=== PATIENT | male | born 1955 | race Caucasian/White ===

== ENCOUNTER 2017-09-13 09:28 | Emergency (ER) | payer MEDICARE, OTHER ==
[~2017-09-13] VITALS: Ht 165.1 cm; Wt 67.5 kg
[~2017-09-13 09:28] MED LIST: ASPI81 CHEW; ATEN1TAB74 PO; BC FPOW; GLUCTAB PO; HYDR-2768 PO; NIAC50TA PO; ONDA1TAB16 PO; SIMV20TA PO; TRAM50 PO
[2017-09-13 09:29] VITALS: BP 214/102; PULSE 109; RESP 20; TEMP 97.8; O2SAT 97
[2017-09-13 09:40] VITALS: BP_SYST 206; BP_SYST 208; BP_DIAS 102; BP_DIAS 145; PULSE 110; RESP 18; O2SAT 98
[2017-09-13] MEDS ORDERED: METF500T PO ×2 (09:53→12:30)
[2017-09-13] MEDS ORDERED: METO50TA PO ×2 (09:53→10:34)
[2017-09-13] MEDS ORDERED: LISI10TA3 PO ×2 (09:53→10:34)
[2017-09-13] MEDS ORDERED: HYDR25TA5 PO ×2 (09:53→10:34)
[2017-09-13] MEDS ORDERED: AMLO10TA2 PO ×2 (09:53→10:34)
[2017-09-13] MEDS ORDERED: ATOR80TA45 PO (09:53)
[2017-09-13 10:24] VITALS: RESP 18; O2SAT 98
[2017-09-13] MEDS ORDERED: hydrALAZINE HCL 20 MG/ML VIAL IV PUSH ONE (10:30)
[2017-09-13] MEDS ORDERED: CORTISPORIN OTIC SUS EACH EAR (10:34)
--- NOTE | 2017-09-13 10:34 | PD ---
HPI Chief Complaint: Medication Refill Request Time Seen by Provider: 09:52 Travel History International Travel<30 days: No Contact w/Intl Traveler<30days: No Traveled to known affect area: No History of Present Illness HPI 62-year-old male complains of headache, wheezing, left ear drainage. Patient states that he had persistent drainage from the left ear for the past few months. Patient states that he has history of COPD started wheezing recently. Patient denies any fever chills chest pain or shortness of breath. Patient Is a smoker. Patient states that he ran out of his inhaler recently. Patient has history hypertension and ran out of his blood pressure medication for the past 17 days. Patient was on lisinopril, metoprolol, amlodipine and HCTZ. Patient also has history of type 2 diabetes on metformin. Patient states that his blood sugar has been in good control. Patient states that the headache mild aching headache diffuse over the head started several days ago. Patient denies any visual change. Patient denies any neck pain. PFSH Past Medical History Blood Disorders: No Cardiovascular Problems: Yes High Cholesterol: Yes Cerebrovascular Accident: Yes (TIA 2010) Diabetes: Yes Patient Takes Glucophage: Yes Hypertension: Yes Respiratory: Yes (COPD) Influenza Vaccination: Yes ?: Not Past Surgical History Appendectomy: Yes Cholecystectomy: Yes Eye Surgery: Yes (CATERACTS) Tonsillectomy: Yes Social History Alcohol Use: No Tobacco Use: Yes (1 PPD) Substance Use: No Allergies-Medications (Allergen,Severity, Reaction): Coded Allergies: penicillin G (Unverified Allergy, Severe, 05/28/17) Uncoded Allergies: NKA (Allergy, Unknown, 06/22/03) PENICILLIN (Allergy, Unknown, 06/22/03) Reported Meds & Prescriptions Reported Meds & Active Scripts Active Ventolin Hfa 18 GM Inh (Albuterol Sulfate) 90 Mcg/Act Aer 2 Puff INH Q4-6H PRN [Cortisporin Otic [place]] 4 Drop EACH EAR TID Hydrochlorothiazide 25 Mg Tab 25 Mg PO DAILY Amlodipine (Amlodipine Besylate) 10 Mg Tab 10 Mg PO DAILY Metoprolol Tartrate 50 Mg Tab 50 Mg PO BID Lisinopril 10 Mg Tab 10 Mg PO DAILY Reported Metformin (Metformin HCl) 500 Mg Tab 500 Mg PO BIDPC Atorvastatin (Atorvastatin Calcium) 80 Mg Tab 80 Mg PO HS Review of Systems General / Constitutional: No: Fever Eyes: No: Visual changes HENT: Positive: Headaches, Ear Discharge Cardiovascular: No: Chest Pain or Discomfort Respiratory: Positive: Wheezing, No: Shortness of Breath Gastrointestinal: No: Abdominal Pain Genitourinary: No: Dysuria Musculoskeletal: No: Pain Skin: No Rash Neurologic: No: Weakness Psychiatric: No: Depression Endocrine: No: Polydipsia Hematologic/Lymphatic: No: Easy Bruising Physical Exam Narrative GENERAL: Well-nourished, well-developed patient. SKIN: Focused skin assessment warm/dry. HEAD: Normocephalic. EYES: No scleral icterus. No injection or drainage. Pupils 2 mm equal reactive. Left ear canal irritated with mild redness and swelling. TM normal. NECK: Supple, trachea midline. No JVD or lymphadenopathy. No meningismus CARDIOVASCULAR: Regular rate and rhythm without murmurs, gallops, or rubs. RESPIRATORY: Breath sounds equal bilaterally. No accessory muscle use. Patient has mild to moderate expiratory wheezes bilaterally. No rhonchi. GASTROINTESTINAL: Abdomen soft, non-tender, nondistended. MUSCULOSKELETAL: No cyanosis, or edema. BACK: Nontender without obvious deformity. No CVA tenderness. Neurologic exam normal. Data Data Last Documented VS Vital Signs Date Time Temp Pulse Resp B/P (MAP) Pulse Ox O2 Delivery O2 Flow Rate FiO2 09/13/17 11:00 105 20 179/96 (123) 98 Room Air 09/13/17 09:29 97.8 Orders Orders Electrocardiogram (09/13/17 10:22) Complete Blood Count With Diff (09/13/17 10:22) Basic Metabolic Panel (Bmp) (09/13/17 10:22) Iv Access Insert/Monitor (09/13/17 10:22) Ecg Monitoring (09/13/17 10:22) Oximetry (09/13/17 10:22) Chest, Single Ap (09/13/17 10:22) Albuterol-Ipratropium Neb (Duoneb Neb) (09/13/17 10:30) Hydralazine Inj (Apresoline Inj) (09/13/17 10:30) Labs Laboratory Tests Test 09/13/17 10:27 White Blood Count 6.2 TH/MM3 Red Blood Count 4.17 MIL/MM3 Hemoglobin 13.8 GM/DL Hematocrit 39.6 % Mean Corpuscular Volume 95.0 FL Mean Corpuscular Hemoglobin 33.1 PG Mean Corpuscular Hemoglobin Concent 34.8 % Red Cell Distribution Width 13.4 % Platelet Count 137 TH/MM3 Mean Platelet Volume 10.3 FL Neutrophils (%) (Auto) 73.1 % Lymphocytes (%) (Auto) 17.0 % Monocytes (%) (Auto) 7.5 % Eosinophils (%) (Auto) 1.9 % Basophils (%) (Auto) 0.5 % Neutrophils # (Auto) 4.6 TH/MM3 Lymphocytes # (Auto) 1.1 TH/MM3 Monocytes # (Auto) 0.5 TH/MM3 Eosinophils # (Auto) 0.1 TH/MM3 Basophils # (Auto) 0.0 TH/MM3 CBC Comment DIFF FINAL Differential Comment Blood Urea Nitrogen 17 MG/DL Creatinine 1.06 MG/DL Random Glucose 201 MG/DL Calcium Level 8.2 MG/DL Sodium Level 140 MEQ/L Potassium Level 3.5 MEQ/L Chloride Level 105 MEQ/L Carbon Dioxide Level 32.0 MEQ/L Anion Gap 3 MEQ/L Estimat Glomerular Filtration Rate 71 ML/MIN MDM Medical Decision Making Medical Screen Exam Complete: Yes Emergency Medical Condition: Yes Interpretation(s) Last Impressions Chest X-Ray 09/13/17 1022 Signed Impressions: Service Date/Time: Wednesday, September 13, 2017 10:49 - CONCLUSION: No acute disease. Trung Salcido Jr., MD CBC within normal limit. BMP with glucose at 201. Calcium 8.2. Differential Diagnosis Differential diagnosis including uncontrolled hypertension, hypertensive urgency , hypertensive crisis, acute exacerbation COPD, bronchitis, pneumonia, PE, pneumothorax, otitis externa. Narrative Course 62-year-old male with left knee drainage, headache, wheezing, elevated blood pressure. History of hypertension and COPD. Patient ran out of medication recently. Albumin with Atrovent unit dose treatment 2. Hydralazine 10 mg IV. Diagnosis Primary Impression: Uncontrolled hypertension Additional Impressions: COPD with acute exacerbation Otitis externa Qualified Codes: H60.392 - Other infective otitis externa, left ear Patient Instructions: General Instructions Additional Instructions: Take medication as directed. Use inhalers directed. Follow-up with personal physician, ENT. Return if worse. Check blood sugar daily. Check blood pressure daily. Med/Other Pt SpecificInfo: Prescription(s) given Scripts Metformin (Metformin) 500 Mg Tab 500 MG PO BIDPC for Blood Sugar Management, #60 TAB 0 Refills Prov: Johnnie Lane MD 09/13/17 Albuterol 18 GM Inh (Ventolin Hfa 18 GM Inh) 90 Mcg/Act Aer 2 PUFF INH Q4-6H Y for SHORTNESS OF BREATH, #1 INHALER [address]: Johnnie Lane MD 09/13/17 [Cortisporin Otic [place]] No Conflict Check 4 DROP EACH EAR TID, #1 Prov: Johnnie Lane MD 09/13/17 Hydrochlorothiazide (Hydrochlorothiazide) 25 Mg Tab 25 MG PO DAILY, #30 TAB 0 Refills Prov: Johnnie Lane MD 09/13/17 Amlodipine (Amlodipine) 10 Mg Tab 10 MG PO DAILY for Blood Pressure Management, #30 TAB 0 Refills Prov: Johnnie Lane MD 09/13/17 Metoprolol Tartrate (Metoprolol Tartrate) 50 Mg Tab 50 MG PO BID, #60 TAB 0 Refills Prov: Johnnie Lane MD 09/13/17 Lisinopril (Lisinopril) 10 Mg Tab 10 MG PO DAILY, #30 TAB 0 Refills Prov: Johnnie Lane MD 09/13/17 Disposition: 01 DISCHARGE HOME Condition: Stable Johnnie Lane MD Sep 13, 2017 10:34
[2017-09-13] MEDS ORDERED: VENTAER INH (10:35)
[2017-09-13 10:36] VITALS: BP 191/109; PULSE 105; PULSE 74
[2017-09-13] MEDS: RESP: ALBUTEROL 2.5 MG/IPRATROPIUM 0.5 MG NEB (SCH) INH ×2 (10:45→11:01)
[2017-09-13 10:50] VITALS: BP 171/100; PULSE 109; PULSE 88
[2017-09-13 11:00] VITALS: BP 179/96; PULSE 105; RESP 20; O2SAT 98
--- NOTE | 2017-09-13 11:06 | RADRPT ---
EXAM DATE/TIME: 09/13/2017 10:49 [facility] COMPARISON: No previous studies available for comparison. INDICATIONS : Short of breath, very high blood pressure MEDICAL HISTORY : Cerebrovascular disease. Diabetes mellitus type II. Hypertension. SURGICAL HISTORY : Cholecystectomy. Appendectomy. Tonsillectomy. ENCOUNTER: Initial ACUITY: 1 day PAIN SCORE: 0/10 LOCATION: Bilateral chest FINDINGS: A single view of the chest demonstrates the lungs to be symmetrically aerated without evidence of mas s, infiltrate or effusion. The cardiomediastinal contours are unremarkable. Osseous structures are intact. CONCLUSION: No acute disease. Trung Salcido Jr., MD on September 13, 2017 at 11:04 Board Certified Radiologist. This report was verified electronically.
[2017-09-13 11:11] LABS: AUTOMATED NEUTROPHIL # 4.6 TH/MM3 (1.8-7.7); BASOPHIL % 0.5 % (0.0-2.0); EOSINOPHIL # 0.1 TH/MM3 (0-0.4); EOSINOPHIL % 1.9 % (0.0-4.0); HEMATOCRIT 39.6 % (39.0-51.0); HEMO FLAGS DIFF FINAL; LYMPHOCYTE # 1.1 TH/MM3 (1.0-4.8); MEAN CORPUSCULAR HEMOGLOBIN 33.1 PG (27.0-34.0); MEAN CORPUSCULAR HGB CONC 34.8 % (32.0-36.0); MONO % 7.5 % (0.0-8.0); NEUT % 73.1 % (16.0-70.0); PLATELET COUNT 137 TH/MM3 (150-450); RED BLOOD COUNT 4.17 MIL/MM3 (4.50-5.90); RED CELL DISTRIBUTION WIDTH 13.4 % (11.6-17.2); WHITE BLOOD COUNT 6.2 TH/MM3 (4.0-11.0)
[2017-09-13 11:24] LABS: POTASSIUM 3.5 MEQ/L (3.5-5.1)
--- NOTE | 2017-09-13 16:32 | EKG ---
Date Performed: 09/13/2017 Time Performed: 09:45:37 PTAGE: 62 years EKG: Sinus rhythm NONSPECIFIC T-WAVE ABNORMALITY Since previous tracing, no significant change noted BORDERLINE ECG PREVIOUS TRACING : 10/24/15 17.48.02 DOCTOR: Nuria Solano Interpretating Date/Time 09/13/2017 16:31:48
== END 2017-09-13 13:37 | disposition home or self-care (01) ==
LOC: NEPC 09:28
DX: J44.1 Chronic obstructive pulmonary disease with (acute) exacerbation (principal); I10 Essential (primary) hypertension; H60.92 Unspecified otitis externa, left ear; R51 Headache; E11.9 Type 2 diabetes mellitus without complications; E78.00 Pure hypercholesterolemia, unspecified; J44.9 Chronic obstructive pulmonary disease, unspecified; F17.200 Nicotine dependence, unspecified, uncomplicated; Z86.73 Personal history of transient ischemic attack (TIA), and cerebral infarction without residual deficits
CPT/HCPCS: 71010; 80048; 85025; 93005; 94640; 94664; 96374; 99285; J0360

== ENCOUNTER 2017-11-05 06:16 | Inpatient (IN) | payer OTHER, MEDICARE ==
[~2017-11-05] VITALS: Ht 167.6 cm; Wt 70.0 kg
[2017-11-05] VITALS (18 sets, daily range): BP systolic 75–110; BP diastolic 43–58; PULSE 88–113; RESP 18–26; TEMP 97.8–100.4; O2SAT 94–98
[~2017-11-05 06:16] MED LIST changes: +AMLO10TA2 PO; -ASPI81 CHEW; -ATEN1TAB74 PO; +ATOR80TA45 PO; -BC FPOW; +CORTISPORIN OTIC SUS EACH EAR; -GLUCTAB PO; -HYDR-2768 PO; +HYDR25TA5 PO; +LISI10TA3 PO; +METF500T PO; +METO50TA PO; -NIAC50TA PO; -ONDA1TAB16 PO; -SIMV20TA PO; -TRAM50 PO; +VENTAER INH
--- NOTE | 2017-11-05 06:37 | PD ---
HPI Chief Complaint: Cold / Flu Symptoms Time Seen by Provider: 06:31 Travel History International Travel<30 days: No Contact w/Intl Traveler<30days: No Traveled to known affect area: No History of Present Illness HPI The patient is 62 year old male who presents to the [facility] emergency department with a history of chest pain, cough, congestion, and fever began 3 days ago. The patient reports that the pain in his chest is in the center of his chest when he takes a deep breath. He has had night sweats. He has had a fever with a tmax of 102. 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 He has a history of COPD and is using his rescue inhaler more frequently. He continues to smoke 5 cigs/ day. He denies any history of heart disease, PE, or DVT. His last stress test was done 2 years ago. The patient reports that he's had nausea and vomiting twice, diarrhea 2. He denies having any blood in his stool or mucus in his stool. Incidentally on ROS , he has had right calf pain for the last 2 days. Otherwise on review of systems neck pain, abdominal pain, urinary symptoms, or neurologic symptoms. PCP : Dr. Ruiz. 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 Blood Disorders: No Cardiovascular Problems: Yes High Cholesterol: Yes COPD: Yes Cerebrovascular Accident: Yes (TIA 2010) Diabetes: Yes Patient Takes Glucophage: Yes (11/05/17 04:30) Diminished Hearing: Yes (DEAF IN RIGHT EAR) Hypertension: Yes Respiratory: Yes (COPD) Past Surgical History Narrative Surgical The patient's past surgical history is significant for cholecystectomy, appendectomy, right knee sx, right hand sx, cataract sx, and tonsillectomy. Appendectomy: Yes Cholecystectomy: Yes Eye Surgery: Yes (CATARACTS) Tonsillectomy: Yes Social History Alcohol Use: No Tobacco Use: Yes (5 CIGARETTES/DAY) Substance Use: No Allergies-Medications (Allergen,Severity, Reaction): Coded Allergies: penicillin G (Unverified Allergy, Severe, 11/05/17) Uncoded Allergies: NKA (Allergy, Unknown, 9/9/03) PENICILLIN (Allergy, Unknown, 06/22/03) Reported Meds & Prescriptions Reported Meds & Active Scripts Active Metformin (Metformin HCl) 500 Mg Tab 500 Mg PO BIDPC Ventolin Hfa 18 GM Inh (Albuterol Sulfate) 90 Mcg/Act Aer 2 Puff INH Q4-6H PRN [Cortisporin Otic [place]] 4 Drop EACH EAR TID Hydrochlorothiazide 25 Mg Tab 25 Mg PO DAILY Amlodipine (Amlodipine Besylate) 10 Mg Tab 10 Mg PO DAILY Metoprolol Tartrate 50 Mg Tab 50 Mg PO BID Lisinopril 10 Mg Tab 10 Mg PO DAILY Reported Atorvastatin (Atorvastatin Calcium) 80 Mg Tab 80 Mg PO HS Review of Systems Except as stated in HPI: all other systems reviewed are Neg General / Constitutional: Positive: Fever Eyes: No: Visual changes HENT: Positive: Rhinorrhea, Congestion, No: Headaches Cardiovascular: No: Chest Pain or Discomfort Respiratory: Positive: Cough (brown sputum), No: Shortness of Breath Gastrointestinal: Positive: Nausea, Vomiting (x2), Diarrhea (x2), No: Abdominal Pain Genitourinary: Positive: Frequency, No: Dysuria Musculoskeletal: No: Pain Skin: No Rash Neurologic: Positive: Weakness (generalized), No: Focal Abnormalities, Change in Mentation, Slurred Speech, Sensory Disturbance Psychiatric: No: Depression Endocrine: No: Polydipsia Hematologic/Lymphatic: No: Easy Bruising Physical Exam Narrative General: The patient is a well-developed well-nourished male, short of breath on arrival , tachypneic, slightly tachycardic. The patient was brought in by ambulance services, IV access was obtained prior to arrival. The patient was given Solu- Medrol 125 mg IV, albuterol nebulizer treatments 2. Head and Neck exam: Head is normocephalic atraumatic. Eyes: EOMI, pupils are equal round and reactive to light. Nose: Midline septum with pink mucous membranes Mouth: Dentition unremarkable. Moist mucus membranes. Posterior oropharynx is not erythematous. No tonsillar hypertrophy. Uvula midline. Airway patent. Neck: No palpable lymphadenopathy. No nuchal rigidity. No thyromegaly. Cardiovascular: Sinus tachycardia in the low 100s without murmurs, gallops, or rubs. No pulse deficit to the extremities on simultaneous auscultation and palpation of his radial artery. Lungs: Expiratory wheezes are audible throughout bilateral lung carr. No crackles or rhonchi. The patient has accessory muscle use noted. The patient has tripoding noted. Abdomen: Soft, without tenderness to palpation in all 4 quadrants of the abdomen. No guarding, rebound, or rigidity. Normal bowel sounds are audible. No tenderness on palpation of McBurney's point. Negative Pickadr's sign. Extremities: No clubbing, cyanosis, or edema. 2+ pulses in all 4 extremities. The patient has a left-sided calf tenderness on palpation. Positive Homans sign on the left. No palpable cords. Back: No spinous process tenderness to palpation. No costovertebral angle tenderness to palpation. Neurologic Exam: Grossly nonfocal. Skin Exam: No rash noted. Intact skin that is warm and dry. Data Data Last Documented VS Vital Signs Date Time Temp Pulse Resp B/P (MAP) Pulse Ox O2 Delivery O2 Flow Rate FiO2 11/05/17 06:45 96 Nasal Cannula 2.00 11/05/17 06:24 102 20 11/05/17 06:20 99.5 101/58 (72) Orders Orders Electrocardiogram (11/05/17 06:31) Complete Blood Count With Diff (11/05/17 06:31) Comprehensive Metabolic Panel (11/05/17 06:31) Creatine Kinase (Cpk) (11/05/17 06:31) Ckmb (Isoenzyme) Profile (11/05/17 06:31) Troponin I (11/05/17 06:31) Prothrombin Time / Inr (Pt) (11/05/17 06:31) Act Partial Throm Time (Ptt) (11/05/17 06:31) Blood Culture (11/05/17 06:31) C-Reactive Protein (Crp) (11/05/17 06:31) Lipase (11/05/17 06:31) Urinalysis - C+S If Indicated (11/05/17 06:31) Magnesium (Mg) (11/05/17 06:31) Influenzae A/B Antigen (11/05/17 06:31) Chest, Single Ap (11/05/17 06:31) Iv Access Insert/Monitor (11/05/17 06:31) Ecg Monitoring (11/05/17 06:31) Oximetry (11/05/17 06:31) Lactic Acid Sepsis Protocol (11/05/17 06:31) Oxygen Administration (11/05/17 06:50) Sodium Chloride 0.9% Flush (Ns Flush) (11/05/17 07:00) Methylprednisolone So Succ Inj (Solumedr (11/05/17 07:00) Albuterol-Ipratropium Neb (Duoneb Neb) (11/05/17 07:00) Sodium Chlor 0.9% 1000 Ml Inj (Ns 1000 M (11/05/17 07:00) Ondansetron Inj (Zofran Inj) (11/05/17 07:00) Us Leg Venous Doppler (11/05/17 06:51) Labs Laboratory Tests Test 11/05/17 06:30 [facility] Medical Decision Making Medical Screen Exam Complete: Yes Emergency Medical Condition: Yes Medical Record Reviewed: Yes Differential Diagnosis Influenza, versus COPD exacerbation, versus pneumonia Narrative Course During the course of the patients emergency department visit, the patients history, examination, and differential diagnosis were reviewed with the patient. The patient was placed on a director cardiac with oximetry and frequent blood pressure monitoring. The patient had IV access obtained and blood work sent for analysis. The patient will have a left leg ultrasound done to rule out DVT. A chest x-ray was ordered. The patient was initially provided DuoNeb 3. The patient was given Solu- Medrol prior to arrival. The patients laboratory studies were reviewed and remarkable for a white count of 8.8, hemoglobin 13.7, platelets 122 with 74.3 neutrophils, monocytes 12.6, CMP is pending, PT PTT are pending. The patient's case will be checked out to the oncoming emergency physician to disposition the patient based on the conclusion of his workup. Alisha Blanca MD Nov 05, 2017 06:37
[2017-11-05] MEDS: RESP: ALBUTEROL 2.5 MG/IPRATROPIUM 0.5 MG NEB (SCH) INH ×5 (06:56→09:14)
[2017-11-05 06:58] LABS: AUTOMATED NEUTROPHIL # 6.5 TH/MM3 (1.8-7.7); BASOPHIL % 0.5 % (0.0-2.0); HEMATOCRIT 39.5 % (39.0-51.0); HEMOGLOBIN 13.7 GM/DL (13.0-17.0); LYMPH % 12.6 % (9.0-44.0); LYMPHOCYTE # 1.1 TH/MM3 (1.0-4.8); MEAN CELL VOLUME 93.2 FL (80.0-100.0); MEAN CORPUSCULAR HEMOGLOBIN 32.3 PG (27.0-34.0); MEAN CORPUSCULAR HGB CONC 34.7 % (32.0-36.0); MEAN PLATELET VOLUME 10.3 FL (7.0-11.0); MONO % 12.6 % (0.0-8.0); MONOCYTE # 1.1 TH/MM3 (0-0.9); NEUT % 74.3 % (16.0-70.0); PLATELET COUNT 122 TH/MM3 (150-450); RED BLOOD COUNT 4.23 MIL/MM3 (4.50-5.90); RED CELL DISTRIBUTION WIDTH 13.7 % (11.6-17.2); WHITE BLOOD COUNT 8.8 TH/MM3 (4.0-11.0)
[2017-11-05] MEDS ORDERED: methylPREDNISolone SOD SUCC 125 MG/2 ML VIAL IV PUSH ONE (07:00)
[2017-11-05] MEDS ORDERED: SODIUM CHLORIDE 0.9% FLUSH 10 ML FLUSH IVF PRN (07:00)
[2017-11-05] MEDS ORDERED: ONDANSETRON HCL 4 MG/2 ML VIAL IV ONE (07:00)
[2017-11-05] MEDS ORDERED: SODIUM CHLOR 0.9% 1000 ML INJ 1,000 ML IV ONE ×2 (07:00→10:15)
[2017-11-05 07:09] LABS: INTERNATIONAL NORMALIZED RATIO 1.1 RATIO; PROTHROMBIN TIME - PATIENT 11.4 SEC (9.8-11.6)
[2017-11-05 07:12] LABS: ALBUMIN 3.5 GM/DL (3.4-5.0); ALT (GPT) 22 U/L (12-78); AST (GOT) 19 U/L (15-37); BICARBONATE 27.3 MEQ/L (21.0-32.0); BLOOD UREA NITROGEN 21 MG/DL (7-18); CALCIUM 7.8 MG/DL (8.5-10.1); CHLORIDE 101 MEQ/L (98-107); GLOMERULAR FILTRATION RATE 51 ML/MIN (>89); GLUCOSE,RANDOM 156 MG/DL (74-106); LIPASE 136 U/L (73-393); MAGNESIUM 2.1 MG/DL (1.5-2.5); SODIUM (NA) 136 MEQ/L (136-145)
[2017-11-05 07:15] LABS: ALKALINE PHOSPHATASE 89 U/L (45-117); TOTAL BILIRUBIN ADULT 0.5 MG/DL (0.2-1.0); TOTAL PROTEIN 7.5 GM/DL (6.4-8.2); TROPONIN I LESS THAN 0.02 NG/ML (0.02-0.05)
--- NOTE | 2017-11-05 07:15 | RADRPT ---
EXAM DATE/TIME: 11/05/2017 06:39 [facility] COMPARISON: CHEST SINGLE AP, September 13, 2017, 10:49. INDICATIONS : Short of breath, mid-sternal chest pains, cough, fever, nausea x1 week. MEDICAL HISTORY : Stroke. SURGICAL HISTORY : None. ENCOUNTER: Initial ACUITY: 1 week PAIN SCORE: 3/10 LOCATION: Left chest FINDINGS: The lungs are clear without infiltrate, nodule, or mass. There is no appreciable pleural effusion fo r technique. Heart and mediastinum are unremarkable. CONCLUSION: No acute cardiopulmonary disease. Pj Gallego MD on November 05, 2017 at 7:13 Board Certified Radiologist. This report was verified electronically.
[2017-11-05] MEDS ORDERED: POTASSIUM CHLORIDE 25 MEQ EFFERVESCENT TAB PO ONE ×2 (07:30→10:15)
--- NOTE | 2017-11-05 07:54 | RADRPT ---
EXAM DATE/TIME: 11/05/2017 07:30 [facility] COMPARISON: No previous studies available for comparison. INDICATIONS : Left leg thrombosis. MEDICAL HISTORY : Hypercholesterolemia. Hypertension. Chronic obstructive pulmonary disease. TIA. SURGICAL HISTORY : Tonsillectomy. Cholecystectomy. Right kene surgery. ENCOUNTER: Initial ACUITY: 1 day PAIN SCORE: 6/10 LOCATION: Left leg. TECHNIQUE: Venous ultrasound of the leg was performed from the inguinal ligament to the proximal calf. Real-evangelista e, color Doppler and spectral tracing, compression and augmentation techniques were used. FINDINGS: There is normal compressibility of the deep venous system from the inguinal region to the proximal ca lf. No echogenic clot is seen in the lumen of the common femoral, femoral, popliteal, and posterior tibial veins. There is a normal response of the venous system to proximal and distal augmentation an d respiration. CONCLUSION: 1. No sonographic evidence for left lower extremity DVT. Eder Cifuentes MD on November 05, 2017 at 7:51 Board Certified Radiologist. This report was verified electronically.
[2017-11-05 09:00] LABS: BILIRUBIN, URINE NEG (NEG); BLOOD, URINE NEG (NEG); GLUCOSE,URINE NEG (NEG); HYALINE CAST, URINE 12 /lpf (RARE); KETONE, URINE NEG (NEG); MUCUS URINE FEW /lpf (OCC); NITRITE,URINE NEG (NEG); PH, URINE 5.5 (5.0-8.5); SQUAMOUS EPITHELIAL CELL URINE <1 /hpf (0-5); URINE COLOR YELLOW (YELLW/STRAW); URINE LEUKOCYTE ESTERASE TRACE (NEG)
[2017-11-05] MEDS ORDERED: MAGNESIUM SULFATE 1 GM PREMIX 100 ML IV ONE (09:00)
--- NOTE | 2017-11-05 10:09 | PD ---
Physical Exam Date Seen by Provider: Nov 05, 2017 Time Seen by Provider: 07:00 Narrative Patient signed out to me at [address] Grant, please see her note for further details. Patient came in with shortness of breath, fevers, an workup was not initiated as well as nebulizers in treatment for COPD. Laboratory Tests Test 11/05/17 06:30 11/05/17 08:35 Red Blood Count 4.23 MIL/MM3 (4.50-5.90) Platelet Count 122 TH/MM3 (150-450) Neutrophils (%) (Auto) 74.3 % (16.0-70.0) Monocytes (%) (Auto) 12.6 % (0.0-8.0) Monocytes # (Auto) 1.1 TH/MM3 (0-0.9) Activated Partial Thromboplast Time 32.9 SEC (24.3-30.1) Blood Urea Nitrogen 21 MG/DL (7-18) Creatinine 1.40 MG/DL (0.60-1.30) Random Glucose 156 MG/DL (74-106) Calcium Level 7.8 MG/DL (8.5-10.1) Potassium Level 3.0 MEQ/L (3.5-5.1) Estimat Glomerular Filtration Rate 51 ML/MIN (>89) Troponin I LESS THAN 0.02 NG/ML C-Reactive Protein 14.80 MG/DL (0.00-0.30) Urine Leukocyte Esterase TRACE (NEG) Urine Mucus FEW /lpf (OCC) Last 24 hours Impressions Lower Extremity Ultrasound 11/05/17 0651 Signed Impressions: Service Date/Time: Sunday, November 05, 2017 07:30 - CONCLUSION: 1. No sonographic evidence for left lower extremity DVT. Eder Cifuentes MD Chest X-Ray 11/05/17 0631 Signed Impressions: Service Date/Time: Sunday, November 05, 2017 06:39 - CONCLUSION: No acute cardiopulmonary disease. Pj Gallego MD Chest x-ray did not show any signs of acute pulmonary processes. D-dimers negative. Obliquus fairly unremarkable except for hypokalemia. Potassium p.o. as given in the ER. He was not given further duo nebs in the ER with only mild symptom relief. After multiple nebulizers were given, an multiple re- evaluations in the ER, he does not appear to be improving significantly. He has still tachypnea, has notable accessory muscle use, an my plan would be to admit him for further treatment. He has also influenza negative. Case with discussed with Dr. Silverman for observation admission in further treatment. Magnesium with also added to regimen. Data Data Last Documented VS Vital Signs Date Time Temp Pulse Resp B/P (MAP) Pulse Ox O2 Delivery O2 Flow Rate FiO2 11/05/17 09:06 97 2.00 11/05/17 09:00 108 23 108/53 (71) Nasal Cannula 11/05/17 06:20 99.5 Orders Orders Electrocardiogram (11/05/17 06:31) Complete Blood Count With Diff (11/05/17 06:31) Comprehensive Metabolic Panel (11/05/17 06:31) Creatine Kinase (Cpk) (11/05/17 06:31) Ckmb (Isoenzyme) Profile (11/05/17 06:31) Troponin I (11/05/17 06:31) Prothrombin Time / Inr (Pt) (11/05/17 06:31) Act Partial Throm Time (Ptt) (11/05/17 06:31) Blood Culture (11/05/17 06:31) C-Reactive Protein (Crp) (11/05/17 06:31) Lipase (11/05/17 06:31) Urinalysis - C+S If Indicated (11/05/17 06:31) Magnesium (Mg) (11/05/17 06:31) Influenzae A/B Antigen (11/05/17 06:31) Chest, Single Ap (11/05/17 06:31) Iv Access Insert/Monitor (11/05/17 06:31) Ecg Monitoring (11/05/17 06:31) Oximetry (11/05/17 06:31) Lactic Acid Sepsis Protocol (11/05/17 06:31) Oxygen Administration (11/05/17 06:50) Sodium Chloride 0.9% Flush (Ns Flush) (11/05/17 07:00) Methylprednisolone So Succ Inj (Solumedr (11/05/17 07:00) Albuterol-Ipratropium Neb (Duoneb Neb) (11/05/17 07:00) Sodium Chlor 0.9% 1000 Ml Inj (Ns 1000 M (11/05/17 07:00) Ondansetron Inj (Zofran Inj) (11/05/17 07:00) Us Leg Venous Doppler (11/05/17 06:51) D-Dimer (11/05/17 07:04) CKMB (11/05/17 06:30) CKMB% (11/05/17 06:30) Potassium Chloride Eff (K-Lyte Cl Eff) (11/05/17 07:30) Albuterol-Ipratropium Neb (Duoneb Neb) (11/05/17 08:00) Albuterol-Ipratropium Neb (Duoneb Neb) (11/05/17 09:00) Magnesium Sulfate 1 Gm Premix (Magnesium (11/05/17 09:00) Admit Order (Ed Use Only) (11/05/17 10:05) Ns (Bolus) Inj (11/05/17 10:15) Labs Laboratory Tests Test 11/05/17 06:30 11/05/17 08:35 White Blood Count 8.8 TH/MM3 Red Blood Count 4.23 MIL/MM3 Hemoglobin 13.7 GM/DL Hematocrit 39.5 % Mean Corpuscular Volume 93.2 FL Mean Corpuscular Hemoglobin 32.3 PG Mean Corpuscular Hemoglobin Concent 34.7 % Red Cell Distribution Width 13.7 % Platelet Count 122 TH/MM3 Mean Platelet Volume 10.3 FL Neutrophils (%) (Auto) 74.3 % Lymphocytes (%) (Auto) 12.6 % Monocytes (%) (Auto) 12.6 % Eosinophils (%) (Auto) 0.0 % Basophils (%) (Auto) 0.5 % Neutrophils # (Auto) 6.5 TH/MM3 Lymphocytes # (Auto) 1.1 TH/MM3 Monocytes # (Auto) 1.1 TH/MM3 Eosinophils # (Auto) 0.0 TH/MM3 Basophils # (Auto) 0.0 TH/MM3 CBC Comment DIFF FINAL Differential Comment Prothrombin Time 11.4 SEC Prothromb Time International Ratio 1.1 RATIO Activated Partial Thromboplast Time 32.9 SEC D-Dimer Quantitative (PE/DVT) 0.48 MG/L FEU Blood Urea Nitrogen 21 MG/DL Creatinine 1.40 MG/DL Random Glucose 156 MG/DL Total Protein 7.5 GM/DL Albumin 3.5 GM/DL Calcium Level 7.8 MG/DL Magnesium Level 2.1 MG/DL Alkaline Phosphatase 89 U/L Aspartate Amino Transf (AST/SGOT) 19 U/L Alanine Aminotransferase (ALT/SGPT) 22 U/L Total Bilirubin 0.5 MG/DL Sodium Level 136 MEQ/L Potassium Level 3.0 MEQ/L Chloride Level 101 MEQ/L Carbon Dioxide Level 27.3 MEQ/L Anion Gap 8 MEQ/L Estimat Glomerular Filtration Rate 51 ML/MIN Lactic Acid Level 0.7 mmol/L Total Creatine Kinase 189 U/L Creatine Kinase MB 0.7 NG/ML Troponin I LESS THAN 0.02 NG/ML C-Reactive Protein 14.80 MG/DL Lipase 136 U/L Urine Color YELLOW Urine Turbidity CLEAR Urine pH 5.5 Urine Specific [place] 1.019 Urine Protein TRACE mg/dL Urine Glucose (UA) NEG mg/dL Urine Ketones NEG mg/dL Urine Occult Blood NEG Urine Nitrite NEG Urine Bilirubin NEG Urine Urobilinogen 2.0 MG/DL Urine Leukocyte Esterase TRACE Urine RBC LESS THAN 1 /hpf Urine WBC 2 /hpf Urine Squamous Epithelial Cells <1 /hpf Urine Hyaline Casts 12 /lpf Urine Mucus FEW /lpf Microscopic Urinalysis Comment CULT NOT INDICATED MDM Medical Record Reviewed: Yes Supervised Visit with STEPHEN: No Diagnosis Primary Impression: COPD exacerbation Additional Impression: Hypokalemia Admitting Information Admitting Physician Requests: Admit Garry Schofield MD Nov 05, 2017 10:09
[2017-11-05] MEDS ORDERED: NALOXONE HCL 0.4 MG/ML AMP IV PUSH PRN (10:15)
[2017-11-05] MEDS ORDERED: SODIUM CHLORIDE 0.9% FLUSH 10 ML FLUSH IV FLUSH PRN (10:15)
[2017-11-05] MEDS ORDERED: RESP: IPRATROPIUM 0.5 MG/2.5 ML NEB NEB PRN (10:15)
[2017-11-05] MEDS: methylPREDNISolone SOD SUCC 40 MG/1 ML VIAL IV PUSH SCH ×2 (11:43→17:57)
--- NOTE | 2017-11-05 12:55 | HHI.HP ---
[facility] No Primary Care Physician Admission Diagnosis COPD exacerbation/hypokalemia Diagnoses: Travel History International Travel<30 Days: No Contact w/Intl Traveler <30 Da: No Traveled to Known Affected Are: No History of Present Illness hx from patient, ER provider, nursing staff could not breathe chest was hurting today is his 4th day with sob coughing a lot sputum is brown and yellow fever is 102.8 at home has been all the time for first 2 days when he wakes up, all clothes and pillows drenched no antibiotics outside had diarrhea- 2 days - about 3x a day thinks color of stool is black but he is not sure also c/o left upper and lower quadrant abdominal pain 2 days could not eat or drink just have to put water in his mouth to wet his mouth to prevent dehydration had constant nausea, no vomiting only dry heaves severe headache- mostly at back of the head no urinary symptoms was very weak no dizziness no syncope pt is diabetic Review of Systems Except as stated in HPI: all other systems reviewed are Neg Past Family Social History Past Medical History htn dm denies cad/chf CVA x2 thinks he has Afib- but he is not sure- COPD - not on home oxygen yet, but PCP was prescribing him for that and arranging with insurance Past Surgical History right knee replaced right elbow right hand right shoulder sx appedectomy tonsilectomy coronary angiogram 20yrs ago Allergies: Coded Allergies: penicillin G (Unverified Allergy, Severe, Hives, 11/05/17) Family History mother, and both sisters- heart problem Social History used to smoke 2 pack a day, now half a pack a day [place] no drugs no 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[employer], now drives taxi Physical Exam Vital Signs Vital Signs Date Time Temp Pulse Resp B/P (MAP) Pulse Ox O2 Delivery O2 Flow Rate FiO2 11/05/17 12:05 111 11/05/17 11:41 98.3 109 18 92/52 (65) 95 11/05/17 10:47 11/05/17 10:14 113 20 107/52 (70) 94 Nasal Cannula 2.00 11/05/17 10:12 113 20 110/55 (73) 94 Nasal Cannula 2.00 11/05/17 10:05 108 21 75/43 (54) 94 Nasal Cannula 2.00 11/05/17 10:00 104 20 76/46 (56) 94 Nasal Cannula 2.00 11/05/17 09:06 97 2.00 11/05/17 09:00 108 23 108/53 (71) 96 Nasal Cannula 2.00 11/05/17 08:15 24 Nasal Cannula 2.00 11/05/17 08:14 109 22 102/57 (72) 98 Nasal Cannula 2.00 11/05/17 08:09 110 26 97 Nasal Cannula 2.00 11/05/17 06:45 96 Nasal Cannula 2.00 11/05/17 06:29 96 Nasal Cannula 2.00 11/05/17 06:24 102 20 96 Nasal Cannula 2.00 11/05/17 06:20 99.5 103 20 101/58 (72) 95 Physical Exam GENERAL: This is a well-nourished, well-developed patient, in no apparent distress. SKIN: No rashes, ecchymoses or lesions. Cool and dry. HEAD: Atraumatic. Normocephalic. No temporal or scalp tenderness. EYES: No scleral icterus. No injection or drainage. ENT: Nose without bleeding, purulent drainage or septal hematoma.. Airway patent. NECK: Trachea midline. No JVD. Supple, nontender, no meningeal signs. CARDIOVASCULAR: Regular rate and rhythm without murmurs, gallops, or rubs. RESPIRATORY: Bilateral expiratory wheezing. GASTROINTESTINAL: Abdomen soft, non-tender, nondistendeds. No guarding. MUSCULOSKELETAL: Extremities without clubbing, cyanosis, or edema. . No calf tenderness. NEUROLOGICAL: Awake and alert. Motor and sensory grossly within normal limitsNormal speech. Laboratory Laboratory Tests Test 11/05/17 06:30 11/05/17 08:35 White Blood Count 8.8 Red Blood Count 4.23 Hemoglobin 13.7 Hematocrit 39.5 Mean Corpuscular Volume 93.2 Mean Corpuscular Hemoglobin 32.3 Mean Corpuscular Hemoglobin Concent 34.7 Red Cell Distribution Width 13.7 Platelet Count 122 Mean Platelet Volume 10.3 Neutrophils (%) (Auto) 74.3 Lymphocytes (%) (Auto) 12.6 Monocytes (%) (Auto) 12.6 Eosinophils (%) (Auto) 0.0 Basophils (%) (Auto) 0.5 Neutrophils # (Auto) 6.5 Lymphocytes # (Auto) 1.1 Monocytes # (Auto) 1.1 Eosinophils # (Auto) 0.0 Basophils # (Auto) 0.0 CBC Comment DIFF FINAL Differential Comment Prothrombin Time 11.4 Prothromb Time International Ratio 1.1 Activated Partial Thromboplast Time 32.9 D-Dimer Quantitative (PE/DVT) 0.48 Blood Urea Nitrogen 21 Creatinine 1.40 Random Glucose 156 Total Protein 7.5 Albumin 3.5 Calcium Level 7.8 Magnesium Level 2.1 Alkaline Phosphatase 89 Aspartate Amino Transf (AST/SGOT) 19 Alanine Aminotransferase (ALT/SGPT) 22 Total Bilirubin 0.5 Sodium Level 136 Potassium Level 3.0 Chloride Level 101 Carbon Dioxide Level 27.3 Anion Gap 8 Estimat Glomerular Filtration Rate 51 Lactic Acid Level 0.7 Total Creatine Kinase 189 Creatine Kinase MB 0.7 Troponin I LESS THAN 0.02 C-Reactive Protein 14.80 B-Type Natriuretic Peptide 8 Lipase 136 Urine Color YELLOW Urine Turbidity CLEAR Urine pH 5.5 Urine Specific [employer] 1.019 Urine Protein TRACE Urine Glucose (UA) NEG Urine Ketones NEG Urine Occult Blood NEG Urine Nitrite NEG Urine Bilirubin NEG Urine Urobilinogen 2.0 Urine Leukocyte Esterase TRACE Urine RBC LESS THAN 1 Urine WBC 2 Urine Squamous Epithelial Cells <1 Urine Hyaline Casts 12 Urine Mucus FEW Microscopic Urinalysis Comment CULT NOT INDICATED Date/Time Source Procedure Growth Status 11/05/17 06:35 Blood Peripheral Aerobic Blood Culture Pending Received 11/05/17 06:35 Blood Peripheral Anaerobic Blood Culture Pending Received 11/05/17 06:30 Nasal Aspirate Influenza Types A,B Antigen (YINA) - Final NEGATIVE FOR FLU A AND B ANTIGEN.... Complete Result Diagram: 11/05/1762911/05/17629 Imaging Last 48 hours Impressions Lower Extremity Ultrasound 11/05/17650 Signed Impressions: Service Date/Time: Sunday, November 05, 2017 07:30 - CONCLUSION: 1. No sonographic evidence for left lower extremity DVT. Eder Cifuentes MD Chest X-Ray 11/05/17630 Signed Impressions: Service Date/Time: Sunday, November 05, 2017 06:39 - CONCLUSION: No acute cardiopulmonary disease. Pj Gallego MD Head CT 11/05/17 0000 Signed Impressions: Service Date/Time: Sunday, November 05, 2017 18:57 - CONCLUSION: 1. No acute intracranial abnormalities. Keyur Pinto MD Capalexandrai VTE Risk Assessment Caprini VTE Risk Assessment: Mod/High Risk (score >= 2) Caprini Risk Assessment Model Point Value = 1 Point Value = 2 Point Value = 3 Point Value = 5 Age 41-60 Minor surgery BMI > 25 kg/m2 Swollen legs Varicose veins or History of unexplained or recurrent spontaneous Oral contraceptives or hormone replacement Sepsis (< 1 month) Serious lung disease, including pneumonia (< 1 month) Abnormal pulmonary function Acute myocardial infarction Congestive heart failure (< 1 month) History of inflammatory bowel disease Medical patient at bed rest Age 61-74 Arthroscopic surgery Major open surgery (> 45 min) Laparoscopic surgery (> 45 min) Malignancy Confined to bed (> 72 hours) Immobilizing plaster cast Central venous access Age >= 75 History of VTE Family history of VTE Factor V Leiden Prothrombin [id number] Lupus anticoagulant Anticardiolipin antibodies Elevated serum homocysteine Heparin-induced thrombocytopenia Other congenital or acquired thrombophilia Stroke (< 1 month) Elective arthroplasty Hip, pelvis, or leg fracture Acute spinal cord injury (< 1 month) Prophylaxis Regimen Total Risk Factor Score Risk Level Prophylaxis Regimen 0-1 Low Early ambulation 2 Moderate Order ONE of the following: *Sequential Compression Device (SCD) *Heparin 5000 units SQ BID 3-4 Higher Order ONE of the following medications: *Heparin 5000 units SQ TID *Enoxaparin/Lovenox 40 mg SQ daily (WT < 150 kg, CrCl > 30 mL/min) *Enoxaparin/Lovenox 30 mg SQ daily (WT < 150 kg, CrCl > 10-29 mL/min) *Enoxaparin/Lovenox 30 mg SQ BID (WT < 150 kg, CrCl > 30 mL/min) AND/OR *Sequential Compression Device (SCD) 5 or more Highest Order ONE of the following medications: *Heparin 5000 units SQ TID (Preferred with Epidurals) *Enoxaparin/Lovenox 40 mg SQ daily (WT < 150 kg, CrCl > 30 mL/min) *Enoxaparin/Lovenox 30 mg SQ daily (WT < 150 kg, CrCl > 10-29 mL/min) *Enoxaparin/Lovenox 30 mg SQ BID (WT < 150 kg, CrCl > 30 mL/min) AND *Sequential Compression Device (SCD) Assessment and Plan Assessment and Plan Impression: A COPD exacerbation Possible underlying pneumonia Severe headaches. No photophobia. No neck rigidity. Clinically not suspecting meningitis. Nausea/vomiting. Likely from underlying infection/pneumonia. htn dm denies cad/chf CVA x2 thinks he has Afib- but he is not sure- COPD - not on home oxygen yet, but PCP was prescribing him for that and arranging with insurance Plan: Solu-Medrol 40 mg IV every 6 hours. nebulizers scheduled and when necessary. PT evaluation. Home oxygen walk test Levofloxacin 750 mg IV every 24 hours. Check BNP. We'll monitor fingersticks and cover with sliding scale coverage. For now, as patient was complaining of nausea and vomiting, will start patient on small D5 IV fluids. If blood sugars are elevated, will discontinue. Hold metformin. Would obtain CT brain to rule out any intracranial hemorrhage/mass to explain his headaches. However on review of medical records, patient had similar headaches previously in last admission as well. Resume home meds. DVT prophylaxis with Lovenox. GI prophylaxis with ranitidine. Bladder scan to rule out urinary retention as patient seems to have some suprapubic distention. Discussed Condition With patient, ER provider, nursing staff Hina Silverman MD Nov 05, 2017 12:55
[2017-11-05] MEDS ORDERED: D5-1/2 NS + KCL 20 MEQ INJ 1,000 ML IV SCH (13:00)
[2017-11-05] MEDS ORDERED: GLUCAGON 1 MG/ML VIAL OTHER PRN (13:00)
[2017-11-05] MEDS ORDERED: DEXTROSE 50% IN WATER 50 ML VIAL(D50) IV PUSH PRN (13:00)
[2017-11-05] MEDS ORDERED: PILL SPLITTER OTHER PRN (13:00)
[2017-11-05] MEDS: LEVOFLOXACIN 750 MG PREMIX INJ 150 ML IV SCH (13:36)
[2017-11-05] MEDS ORDERED: OXYGENDME NAS.CANULA (15:36)
[2017-11-05] MEDS: RESP: IPRATROPIUM 0.5 MG/2.5 ML NEB NEB SCH ×2 (16:09→20:46)
[2017-11-05] MEDS: INSULIN ASPART SUPPLEMENTAL SCALE SQ SCH ×2 (17:00→20:48)
--- NOTE | 2017-11-05 17:24 | EKG ---
Date Performed: 11/05/2017 Time Performed: 06:25:11 PTAGE: 62 years EKG: SINUS TACHYCARDIA POSSIBLE LEFT ATRIAL ENLARGEMENT NONSPECIFIC T-WAVE ABNORMALITY ABNORMAL RHYTHM ECG PREVIOUS TRACING : 09/13/2017 09.45 DOCTOR: Layla Goldstein Interpretating Date/Time 11/05/2017 17:20:53
[2017-11-05] MEDS ORDERED: INSULIN HUMAN REGULAR 1,000 UNITS/10 ML VIAL IV PUSH ONE (17:45)
[2017-11-05] MEDS: ACETAMINOPHEN 325 MG TAB PO PRN (18:00)
--- NOTE | 2017-11-05 19:23 | RADRPT ---
EXAM DATE/TIME: 11/05/2017 18:57 [facility] COMPARISON: No previous studies available for comparison. INDICATIONS : Headaches RADIATION DOSE: 38.59 CTDIvol (mGy) MEDICAL HISTORY : Cerebrovascular disease. Hypertension. Chronic obstructive pulmonary disease.Diabetes SURGICAL HISTORY : ENCOUNTER: Initial ACUITY: 1 yr PAIN SCALE: 6/10 LOCATION: cranial TECHNIQUE: Multiple contiguous axial images were obtained of the head. Using automated exposure control and adj ustment of the mA and/or kV according to patient size, radiation dose was kept as low as reasonably a chievable to obtain optimal diagnostic quality images. DICOM format image data is available electro nically for review and comparison. FINDINGS: CEREBRUM: The ventricles are normal for age. No evidence of midline shift, mass lesion, hemorrhage or acute in farction. No extra-axial fluid collections are seen. POSTERIOR FOSSA: The cerebellum and brainstem are intact. The 4th ventricle is midline. The cerebellopontine angle i s unremarkable. EXTRACRANIAL: The visualized portion of the orbits is intact. SKULL: The calvaria is intact. No evidence of skull fracture. CONCLUSION: 1. No acute intracranial abnormalities. Keyur Pinto MD on November 05, 2017 at 19:19 Board Certified Radiologist. This report was verified electronically.
[2017-11-05] MEDS: SODIUM CHLORIDE 0.9% FLUSH 10 ML FLUSH IV FLUSH SCH (20:48)
[2017-11-05] MEDS: FAMOTIDINE 20 MG TAB PO SCH (20:48)
[2017-11-06] VITALS (8 sets, daily range): BP systolic 99–128; BP diastolic 54–64; PULSE 81–115; RESP 18–20; TEMP 97.5–98.2; O2SAT 94–98
[2017-11-06] MEDS: RESP: IPRATROPIUM 0.5 MG/2.5 ML NEB NEB SCH ×4 (03:18→19:29)
[2017-11-06] MEDS: methylPREDNISolone SOD SUCC 40 MG/1 ML VIAL IV PUSH SCH ×3 (05:54→12:11)
[2017-11-06] MEDS: ENOXAPARIN SODIUM 40 MG/0.4 ML SYRINGE SQ SCH (08:39)
[2017-11-06] MEDS: ACETAMINOPHEN 325 MG TAB PO PRN ×3 (08:39→17:25)
[2017-11-06] MEDS: FAMOTIDINE 20 MG TAB PO SCH ×2 (08:39→20:44)
[2017-11-06] MEDS: SODIUM CHLORIDE 0.9% FLUSH 10 ML FLUSH IV FLUSH SCH ×2 (09:00→20:34)
[2017-11-06 09:15] LABS: AUTOMATED NEUTROPHIL # 8.6 TH/MM3 (1.8-7.7); BASOPHIL % 0.1 % (0.0-2.0); HEMATOCRIT 34.9 % (39.0-51.0); HEMOGLOBIN 12.2 GM/DL (13.0-17.0); LYMPH % 3.5 % (9.0-44.0); LYMPHOCYTE # 0.3 TH/MM3 (1.0-4.8); MEAN CELL VOLUME 93.6 FL (80.0-100.0); MEAN CORPUSCULAR HEMOGLOBIN 32.9 PG (27.0-34.0); MEAN CORPUSCULAR HGB CONC 35.1 % (32.0-36.0); MEAN PLATELET VOLUME 10.5 FL (7.0-11.0); MONO % 4.4 % (0.0-8.0); MONOCYTE # 0.4 TH/MM3 (0-0.9); PLATELET COUNT 109 TH/MM3 (150-450); RED BLOOD COUNT 3.73 MIL/MM3 (4.50-5.90); RED CELL DISTRIBUTION WIDTH 13.8 % (11.6-17.2); WHITE BLOOD COUNT 9.4 TH/MM3 (4.0-11.0)
[2017-11-06 09:47] LABS: BICARBONATE 24.6 MEQ/L (21.0-32.0); CALCIUM 7.9 MG/DL (8.5-10.1); CREATININE 1.4 MG/DL (0.60-1.30)
[2017-11-06] MEDS: INSULIN ASPART SUPPLEMENTAL SCALE SQ SCH ×3 (12:24→20:44)
[2017-11-06] MEDS: LEVOFLOXACIN 750 MG PREMIX INJ 150 ML IV SCH (14:08)
[2017-11-06] MEDS ORDERED: RESP: ALBUTEROL 0.63 MG/3 ML NEB (PRN) NEB (14:30)
[2017-11-06] MEDS ORDERED: INSULIN DETEMIR 100 UNITS/ML VIAL SQ ONE (14:30)
--- NOTE | 2017-11-06 14:32 | HHI.PR ---
Subjective Remarks Follow-up COPD exacerbation and diabetes mellitus. Improving shortness of breath but still with wheezing. Uncontrolled diabetes last fingerstick over 400. Patient reports of controlled diabetes at home fingersticks in the 100s. Discussed with nursing staff Objective Vitals Vital Signs Date Time Temp Pulse Resp B/P (MAP) Pulse Ox O2 Delivery O2 Flow Rate FiO2 11/06/17 11:31 22 11/06/17 11:04 98.2 81 18 105/59 (74) 94 11/06/17 09:35 96 Nasal Cannula 2.00 11/06/17 08:20 115 11/06/17 07:10 97.8 81 20 128/64 (85) 96 11/06/17 04:50 98.2 103 18 99/54 (69) 95 11/05/17 21:39 97.8 88 18 104/56 (72) 94 11/05/17 20:51 96 Nasal Cannula 2.00 11/05/17 16:16 91/52 (65) 11/05/17 15:26 106 11/05/17 14:36 98.1 106 18 88/51 (63) 96 I/O 11/05/17 11/05/17 11/05/17 11/06/17 11/06/17 11/06/17 07:00 15:00 23:00 07:00 15:00 23:00 Intake Total 1250 ml Balance 1250 ml Intake IV Total 1250 ml Bladder Scan Volume Amount 149 ml Result Diagram: 11/06/17 0703 11/06/17 0703 Imaging Last Impressions Lower Extremity Ultrasound 11/05/17 0651 Signed Impressions: Service Date/Time: Sunday, November 05, 2017 07:30 - CONCLUSION: 1. No sonographic evidence for left lower extremity DVT. Eder Cifuentes MD Chest X-Ray 11/05/17 0631 Signed Impressions: Service Date/Time: Sunday, November 05, 2017 06:39 - CONCLUSION: No acute cardiopulmonary disease. Pj Gallego MD Head CT 11/05/17 0000 Signed Impressions: Service Date/Time: Sunday, November 05, 2017 18:57 - CONCLUSION: 1. No acute intracranial abnormalities. Keyur Pinto MD Objective Remarks GENERAL: This is a well-nourished, well-developed patient, in no apparent distress. SKIN: No rashes, ecchymoses or lesions. Cool and dry. CARDIOVASCULAR: Regular rate and rhythm without murmurs, gallops, or rubs. RESPIRATORY: Bilateral expiratory wheezing. No retractions GASTROINTESTINAL: Abdomen soft, non-tender, nondistended. No guarding. MUSCULOSKELETAL: Extremities without clubbing, cyanosis, or edema. . No calf tenderness. NEUROLOGICAL: Awake and alert. Motor and sensory grossly within normal limitsNormal speech. Procedures none A/P Problem List: (1) COPD exacerbation ICD Code: J44.1 - Chronic obstructive pulmonary disease with (acute) exacerbation Status: Acute Assessment and Plan COPD exacerbation with acute bronchitis. Still with active wheezing though improving exercise tolerance. Switch to by mouth steroids and Levaquin, continue nebulizations and wean oxygen to keep saturation at least 92%. Blood and sputum culture sputum culture Severe headaches. No photophobia. No neck rigidity. Clinically not suspecting meningitis. Head CT unremarkable Nausea, vomiting and diarrhea. Resolved. Acute kidney injury secondary to dehydration. Nonoliguric. IV fluid 1 L. Avoid nephrotoxins. Hold lisinopril and hydrochlorothiazide Repeat BMP and magnesium in the morning. Uncontrolled diabetes secondary to steroids. Follow-up A1c. Diabetic education. Levemir 12 units 1. Restart metformin. Monitor fingersticks with sliding scale coverage. Chronic medical conditions of htn and CVA x2 DVT prophylaxis with Lovenox. GI prophylaxis with ranitidine. Discharge Planning Patient not ready for discharge still with active wheezing with uncontrolled diabetes fingerstick over 400 Abilio Denton MD Nov 06, 2017 14:32
[2017-11-06] MEDS: SODIUM CHLOR 0.9% 1000 ML INJ 1,000 ML IV SCH (15:48)
[2017-11-06 15:59] LABS: HEMOGLOBIN A1C 7.2 % (4.3-6.0)
[2017-11-06] MEDS: RESP: ALBUTEROL 0.63 MG/3 ML NEB (SCH) NEB ×2 (16:00→19:29)
[2017-11-06] MEDS: metFORMIN HCL 500 MG TAB PO SCH (17:48)
[2017-11-06] MEDS ORDERED: predniSONE 20 MG TAB PO SCH (18:00)
[2017-11-06] MEDS: METOPROLOL TARTRATE 50 MG TAB PO SCH (20:41)
[2017-11-06] MEDS ORDERED: ATORVASTATIN 80 MG TAB PO SCH (21:00)
[2017-11-07 00:26] VITALS: BP 111/56; PULSE 87; RESP 16; TEMP 96.5; O2SAT 94
[2017-11-07] MEDS: ACETAMINOPHEN 325 MG TAB PO PRN (01:50)
[2017-11-07 04:04] VITALS: BP 110/58; PULSE 103; RESP 14; TEMP 95.6; O2SAT 95
[2017-11-07] MEDS: SODIUM CHLOR 0.9% 1000 ML INJ 1,000 ML IV SCH (05:31)
[2017-11-07 08:03] LABS: CALCIUM 7.9 MG/DL (8.5-10.1); CREATININE 1.3 MG/DL (0.60-1.30); MAGNESIUM 2.3 MG/DL (1.5-2.5)
[2017-11-07] MEDS: RESP: ALBUTEROL 0.63 MG/3 ML NEB (SCH) NEB ×2 (08:18→11:21)
[2017-11-07] MEDS: RESP: IPRATROPIUM 0.5 MG/2.5 ML NEB NEB SCH ×2 (08:18→11:21)
[2017-11-07 08:19] VITALS: O2SAT 95
[2017-11-07 08:30] VITALS: BP 123/69; PULSE 89; RESP 20; TEMP 97.8; O2SAT 96
[2017-11-07] MEDS ORDERED: POTASSIUM CHLORIDE 20 MEQ CONTROLLED RELEASE TAB PO ONE (08:45)
[2017-11-07] MEDS: FAMOTIDINE 20 MG TAB PO SCH (09:10)
[2017-11-07] MEDS: METOPROLOL TARTRATE 50 MG TAB PO SCH (09:10)
[2017-11-07] MEDS: metFORMIN HCL 500 MG TAB PO SCH (09:10)
[2017-11-07] MEDS: ENOXAPARIN SODIUM 40 MG/0.4 ML SYRINGE SQ SCH (09:11)
[2017-11-07] MEDS: INSULIN ASPART SUPPLEMENTAL SCALE SQ SCH (09:24)
[2017-11-07] MEDS: SODIUM CHLORIDE 0.9% FLUSH 10 ML FLUSH IV FLUSH SCH (09:24)
--- NOTE | 2017-11-07 11:21 | HHI.PR ---
Subjective Remarks Follow-up COPD exacerbation. Much improved shortness of breath ambulating in the hallway on nasal cannula. Discussed with RN Objective Vitals Vital Signs Date Time Temp Pulse Resp B/P (MAP) Pulse Ox O2 Delivery O2 Flow Rate FiO2 11/07/17 08:30 97.8 89 20 123/69 (87) 96 11/07/17 08:19 95 Nasal Cannula 2.00 11/07/17 04:04 95.6 103 14 110/58 (75) 95 11/07/17 00:26 96.5 87 16 111/56 (74) 94 11/06/17 20:39 97.5 107 115/58 (77) 98 11/06/17 19:30 Nasal Cannula 2.00 11/06/17 19:25 83 11/06/17 18:51 24 11/06/17 15:04 97.9 92 18 117/60 (79) 95 I/O 11/06/17 11/06/17 11/06/17 11/07/17 11/07/17 11/07/17 07:00 15:00 23:00 07:00 15:00 23:00 Intake Total 510 ml 1000 ml Balance 510 ml 1000 ml Intake Oral 360 ml IV Total 150 ml 1000 ml # Voids 4 Result Diagram: 11/06/17 0703 11/07/17 0640 Imaging Last Impressions Lower Extremity Ultrasound 11/05/17 0651 Signed Impressions: Service Date/Time: Sunday, November 05, 2017 07:30 - CONCLUSION: 1. No sonographic evidence for left lower extremity DVT. Eder Cifuentes MD Chest X-Ray 11/05/17 0631 Signed Impressions: Service Date/Time: Sunday, November 05, 2017 06:39 - CONCLUSION: No acute cardiopulmonary disease. Pj Gallego MD Head CT 11/05/17 0000 Signed Impressions: Service Date/Time: Sunday, November 05, 2017 18:57 - CONCLUSION: 1. No acute intracranial abnormalities. Keyur Pinto MD Objective Remarks GENERAL: This is a well-nourished, well-developed patient, in no apparent distress. SKIN: No rashes, ecchymoses or lesions. Cool and dry. CARDIOVASCULAR: Regular rate and rhythm without murmurs, gallops, or rubs. RESPIRATORY: Much improved expiratory wheezing. No retractions GASTROINTESTINAL: Abdomen soft, non-tender, nondistended. No guarding. MUSCULOSKELETAL: Extremities without clubbing, cyanosis, or edema. . No calf tenderness. NEUROLOGICAL: Awake and alert. Motor and sensory grossly within normal limits Normal speech. Procedures none A/P Problem List: (1) COPD exacerbation ICD Code: J44.1 - Chronic obstructive pulmonary disease with (acute) exacerbation Status: Acute Assessment and Plan COPD exacerbation with acute bronchitis. Much improved wheezing and exercise tolerance. Continue mouth steroids, Levaquin, nebulizations and wean oxygen to keep saturation at least 92%. Blood and sputum culture sputum culture negative to date Severe headaches. No photophobia. No neck rigidity. Clinically not suspecting meningitis. Head CT unremarkable. Resolved Nausea, vomiting and diarrhea. Resolved. Acute kidney injury secondary to dehydration. Nonoliguric. IV fluid 1 L. Avoid nephrotoxins. Resolving may restart lisinopril. . Hold HCTZ Uncontrolled diabetes secondary to steroids. A1c 7.2. Diabetic education. Levemir 12 units 1. Continue metformin. Monitor fingersticks with sliding scale coverage. Chronic medical conditions of htn and CVA x2 DVT prophylaxis with Lovenox. GI prophylaxis with ranitidine. Discharge Planning Discharge patient to home Condition on discharge: Improved Regular Diet as tolerated Ad Sharon activity no driving Rx written: Levaquin, prednisone and lisinopril 5 mg daily Follow-up with primary care physician Abilio Denton MD Nov 07, 2017 11:21
[2017-11-07] MEDS ORDERED: LISI-519 PO (11:23)
[2017-11-07] MEDS ORDERED: PRED20 PO (11:23)
[2017-11-07] MEDS ORDERED: LEVA750T9 PO (11:23)
--- NOTE | 2017-11-07 11:24 | HHI.DCPOC ---
Discharge Care Plan Diagnosis: (1) COPD exacerbation Goals to Promote Your Health * To prevent worsening of your condition and complications * To maintain your health at the optimal level Directions to Meet Your Goals Take your medications as prescribed Follow your dietary instruction Follow activity as directed Keep your appointments as scheduled Take your immunizations and boosters as scheduled If your symptoms worsen call your PCP, if no PCP go to Urgent Care Center or Emergency Room Smoking is Dangerous to Your Health. Avoid second hand smoke Call the 24-hour hour crisis hotline for domestic abuse at Elsa Quinonez PA-C Nov 07, 2017 11:23 am
[2017-11-07] MEDS ORDERED: LEVOFLOXACIN 750 MG TAB PO SCH (14:00)
== END 2017-11-07 13:35 | disposition home or self-care (01) | DRG 191 ==
LOC: NEPC 06:16 → NEDA 10:08 → NEPHCDU 10:55 → OBSVTOIN 11-06 14:18
PROVIDERS: ADMIT Internal Medicine; ATTEND Internal Medicine
DX: J44.0 Chronic obstructive pulmonary disease with (acute) lower respiratory infection (principal); J20.9 Acute bronchitis, unspecified; N17.9 Acute kidney failure, unspecified; J44.1 Chronic obstructive pulmonary disease with (acute) exacerbation; E11.65 Type 2 diabetes mellitus with hyperglycemia; Z79.84 Long term (current) use of oral hypoglycemic drugs; I10 Essential (primary) hypertension; E87.6 Hypokalemia; R19.7 Diarrhea, unspecified; E86.0 Dehydration; R51 Headache; F17.210 Nicotine dependence, cigarettes, uncomplicated; H91.91 Unspecified hearing loss, right ear; Z86.73 Personal history of transient ischemic attack (TIA), and cerebral infarction without residual deficits; Z96.651 Presence of right artificial knee joint
CPT/HCPCS: 70450; 71045; 80048; 80053; 81001; 82550; 82552; 82947; 82948; 83036; 83605; 83690; 83735; 83880; 84484; 85025; 85379; 85610; 85730; 86140; 87040; 87070; 87205; 87804; 93005; 93971; 94618; 94640; 94664; 96361; 96365; 96366; 96367; 96372; 96375; G0378; G8987-GP; G8988-GP; J1650; J1815; J1956; J2405; J2920; J3475; J3480; J7030; J7512; J7613; J7644